=== PATIENT | female | born 1975 | race Caucasian/White ===

== ENCOUNTER 2018-01-07 11:22 | Emergency (ER) | payer BC ==
[~2018-01-07] VITALS: Ht 170.2 cm; Wt 129.5 kg
[2018-01-07 11:43] VITALS: BP 105/72; PULSE 123; RESP 22; TEMP 98.1; O2SAT 97
[2018-01-07] MEDS ORDERED: SODIUM CHLOR 0.9% 1000 ML INJ 1,000 ML IV SCH (14:57)
--- NOTE | 2018-01-07 14:59 | PD ---
HPI Chief Complaint: Abdominal Pain Time Seen by Provider: 14:47 Travel History International Travel<30 days: No Contact w/Intl Traveler<30days: No Traveled to known affect area: No History of Present Illness HPI Patient is a 42-year-old female presents emergency department for evaluation of abdominal pain and intermittent fevers at home. Patient had a recent ventral hernia repair at outside facility 5 days ago, despite this she stated that her surgeon cleared her to travel down to [place] from [place]. Patient states that she got here she has been having fairly extreme belly pain nausea without vomiting and intermittent fevers. She states she never took her temperature is felt hot. States symptoms are severe, all over her abdomen, constant, context and associated signs symptoms as above. States she has not had any dysuria never had a problem with kidney stones before peer [facility] Past Medical History Cardiovascular Problems: Yes Diabetes: Yes ?: Not Past Surgical History Narrative Surgical Hernia repair, Social History Tobacco Use: Yes Allergies-Medications (Allergen,Severity, Reaction): Coded Allergies: Iodinated Contrast- Oral and IV Dye (Verified Allergy, Severe, Swelling, ) THROAT SWELLING Sulfa (Sulfonamide Antibiotics) (Verified Allergy, Severe, Anaphylaxis, ) ceftriaxone (Verified Allergy, Severe, Swelling, 01/07/18) THROAT SWELLING celecoxib (Verified Allergy, Severe, Hallucinations, 01/07/18) shellfish derived (Verified Allergy, Severe, Swelling, 01/07/18) THROAT SWELLING bee venom protein (honey bee) (Verified Allergy, Unknown, 01/07/18) Reported Meds & Prescriptions Reported Meds & Active Scripts Active Cipro (Ciprofloxacin HCl) 500 Mg Tab 500 Mg PO BID 7 Days Reported Robaxin (Methocarbamol) 500 Mg Tab 1,000 Mg PO TID Novolog Inj (Insulin Aspart) 1,000 Unit/10 Ml Vial 0 SQ DIRECTED Sliding Scale as directed. Lantus Inj (Insulin Glargine) 100 Unit/Ml Inj 45 Tchzxzlwka-Lakoprszpuhpm-Npvljmxd 50-300-40 Mg Cap 1 Cap PO Q4H PRN Do not exceed 6 capsules/day. Pepcid (Famotidine) 40 Mg Tab 40 Mg PO HS Hydrochlorothiazide 12.5 Mg Cap 12.5 Mg PO DAILY Losartan (Losartan Potassium) 100 Mg Tab 100 Mg PO DAILY Metformin (Metformin HCl) 1,000 Mg Tab 1,000 Mg PO BIDPC Zofran (Ondansetron HCl) 4 Mg Tab 4 Mg PO Q6HR PRN Zofran (Ondansetron HCl) 4 Mg Tab 4 Mg PO Q12HR PRN Oxycodone (Oxycodone HCl) 5 Mg Cap 5 Mg PO Q4H PRN Review of Systems Except as stated in HPI: all other systems reviewed are Neg Physical Exam Narrative GENERAL: Well-developed well-nourished reproducible uncomfortable SKIN: Focused skin assessment warm/dry. HEAD: Atraumatic. Normocephalic. EYES: Pupils equal and round. No scleral icterus. No injection or drainage. ENT: No nasal bleeding or discharge. Mucous membranes pink and moist. NECK: Trachea midline. No JVD. CARDIOVASCULAR: Regular rate and rhythm. No murmur appreciated. RESPIRATORY: No accessory muscle use. Clear to auscultation. Breath sounds equal bilaterally. GASTROINTESTINAL: Abdomen soft, morbidly obese, healing surgical wounds consistent with laparoscopic hernia repair. They are clean dry and intact show no signs of infection. Her abdomen is mildly tender but there is no percussive signs no rebound signs no peritoneal signs of any kind. No CVA tenderness bilaterally. MUSCULOSKELETAL: No obvious deformities. No clubbing. No cyanosis. No edema. NEUROLOGICAL: Awake and alert. No obvious cranial nerve deficits. Motor grossly within normal limits. Normal speech. PSYCHIATRIC: Appropriate mood and affect; insight and judgment normal. Data Data Last Documented VS Vital Signs Date Time Temp Pulse Resp B/P (MAP) Pulse Ox O2 Delivery O2 Flow Rate FiO2 01/07/18 17:16 91 17 131/68 (89) 96 Room Air 01/07/18 11:43 98.1 Orders Orders Complete Blood Count With Diff (01/07/18 14:57) Comprehensive Metabolic Panel (01/07/18 14:57) Lipase (01/07/18 14:57) Lactic Acid (01/07/18 14:57) Prothrombin Time / Inr (Pt) (01/07/18 14:57) Act Partial Throm Time (Ptt) (01/07/18 14:57) Urinalysis - C+S If Indicated (01/07/18 14:57) Ct Abd/Pel W/O Iv Contrast (01/07/18 14:57) Iv Access Insert/Monitor (01/07/18 14:57) Ecg Monitoring (01/07/18 14:57) Oximetry (01/07/18 14:57) Ondansetron Inj (Zofran Inj) (01/07/18 15:00) Sodium Chlor 0.9% 1000 Ml Inj (Ns 1000 M (01/07/18 14:57) Sodium Chloride 0.9% Flush (Ns Flush) (01/07/18 15:00) Electrocardiogram (01/07/18 14:57) Ketorolac Inj (Toradol Inj) (01/07/18 15:00) Ed Urine Pregnancytest Poc (01/07/18 14:57) Urine Culture (01/07/18 15:50) Morphine Inj (Morphine Inj) (01/07/18 17:15) Ciprofloxacin 400 Mg Premix (Cipro 400 M (01/07/18 19:00) Ed Discharge Order (01/07/18 20:02) Labs Laboratory Tests Test 01/07/18 15:05 01/07/18 15:20 01/07/18 15:50 White Blood Count 12.8 TH/MM3 Red Blood Count 4.79 MIL/MM3 Hemoglobin 14.2 GM/DL Hematocrit 41.2 % Mean Corpuscular Volume 86.0 FL Mean Corpuscular Hemoglobin 29.7 PG Mean Corpuscular Hemoglobin Concent 34.5 % Red Cell Distribution Width 13.5 % Platelet Count 258 TH/MM3 Mean Platelet Volume 9.1 FL Neutrophils (%) (Auto) 79.9 % Lymphocytes (%) (Auto) 11.1 % Monocytes (%) (Auto) 7.8 % Eosinophils (%) (Auto) 0.6 % Basophils (%) (Auto) 0.6 % Neutrophils # (Auto) 10.2 TH/MM3 Lymphocytes # (Auto) 1.4 TH/MM3 Monocytes # (Auto) 1.0 TH/MM3 Eosinophils # (Auto) 0.1 TH/MM3 Basophils # (Auto) 0.1 TH/MM3 CBC Comment DIFF FINAL Differential Comment Prothrombin Time 11.2 SEC Prothromb Time International Ratio 1.1 RATIO Activated Partial Thromboplast Time 41.3 SEC Blood Urea Nitrogen 7 MG/DL Creatinine 0.70 MG/DL Random Glucose 263 MG/DL Total Protein 6.8 GM/DL Albumin 3.0 GM/DL Calcium Level 8.9 MG/DL Alkaline Phosphatase 123 U/L Aspartate Amino Transf (AST/SGOT) 28 U/L Alanine Aminotransferase (ALT/SGPT) 35 U/L Total Bilirubin 1.0 MG/DL Sodium Level 136 MEQ/L Potassium Level 3.6 MEQ/L Chloride Level 99 MEQ/L Carbon Dioxide Level 28.2 MEQ/L Anion Gap 9 MEQ/L Estimat Glomerular Filtration Rate 91 ML/MIN Lipase 64 U/L Lactic Acid Level 1.1 mmol/L Urine Color YELLOW Urine Turbidity HAZY Urine pH 6.5 Urine Specific [place] 1.015 Urine Protein 30 mg/dL Urine Glucose (UA) NEG mg/dL Urine Ketones 10 mg/dL Urine Occult Blood SMALL Urine Nitrite NEG Urine Bilirubin NEG Urine Urobilinogen 4.0 MG/DL Urine Leukocyte Esterase LARGE Urine RBC 14 /hpf Urine WBC /hpf Urine WBC Clumps OCC Urine Squamous Epithelial Cells 2 /hpf Urine Bacteria MANY /hpf Urine Mucus FEW /lpf Microscopic Urinalysis Comment CULTURE INDICATED MDM Medical Decision Making Medical Screen Exam Complete: Yes Emergency Medical Condition: Yes Differential Diagnosis Intra-abdominal infection, kidney stone, pyelonephritis, urinary tract infection. Narrative Course Patient was room to the emergency department, appears somewhat uncomfortable, she is tachycardic and tachypneic but after pain medicine these 2 vital signs resolved, she is not febrile. Her UA does show signs of urinary tract infection , think kidney stone is on the differential as well as intra-abdominal infection I recommend a CAT scan of the abdomen and she is agreeable. There is significant fat stranding around the left kidney with singular kidney stone in the renal pelvis but no obstructing stones. This could represent a pyelonephritis or certainly could represent a recently passed kidney stone. Either way she has defervesced quite well and appears comfortable at this time. She has pain medicine at home, she was given ciprofloxacin by IV and will be discharged on antibiotics. Discussed return to ED criteria follow-up with her surgeon and symptomatic management. She is stable for discharge Diagnosis Primary Impression: Pyelonephritis Referrals: Tam Wells MD Med/Other Pt SpecificInfo: Prescription(s) given Scripts Ciprofloxacin (Cipro) 500 Mg Tab 500 MG PO BID for Infection for 7 Days, #14 TAB 0 Refills Prov: Lisandro Gill MD 01/07/18 Disposition: DISCHARGE HOME Condition: Stable Lisandro Gill MD Jan 07, 2018 14:59
[2018-01-07] MEDS ORDERED: KETOROLAC TROMETHAMINE 30 MG/ML (IVP) VIAL IVP ONE (15:00)
[2018-01-07] MEDS ORDERED: ONDANSETRON HCL 4 MG/2 ML VIAL IVP ONE (15:00)
[2018-01-07] MEDS ORDERED: ZOFR4TAB PO ×2 (15:02)
[2018-01-07] MEDS ORDERED: HYDR12.57 PO (15:02)
[2018-01-07] MEDS ORDERED: BUTA1CAP5 PO (15:02)
[2018-01-07] MEDS ORDERED: METF1000 PO (15:02)
[2018-01-07] MEDS ORDERED: NOVOLOGP2 SQ (15:02)
[2018-01-07] MEDS ORDERED: OXYC1CAP PO (15:02)
[2018-01-07] MEDS ORDERED: LANTUS2P (15:02)
[2018-01-07] MEDS ORDERED: FAMO1TAB73 PO (15:02)
[2018-01-07] MEDS ORDERED: LOSA100T PO (15:02)
[2018-01-07] MEDS ORDERED: ROBA500T PO (15:02)
[2018-01-07 15:03] VITALS: O2SAT 95
[2018-01-07] MEDS: SODIUM CHLORIDE 0.9% FLUSH 10 ML FLUSH IV FLUSH PRN ×2 (15:14→17:09)
[2018-01-07 15:53] LABS: AUTOMATED NEUTROPHIL # 10.2 TH/MM3 (1.8-7.7); BASOPHIL # 0.1 TH/MM3 (0-0.2); BASOPHIL % 0.6 % (0.0-2.0); EOSINOPHIL # 0.1 TH/MM3 (0-0.4); EOSINOPHIL % 0.6 % (0.0-4.0); HEMATOCRIT 41.2 % (35.0-46.0); HEMOGLOBIN 14.2 GM/DL (11.6-15.3); LYMPH % 11.1 % (9.0-44.0); LYMPHOCYTE # 1.4 TH/MM3 (1.0-4.8); MEAN CORPUSCULAR HEMOGLOBIN 29.7 PG (27.0-34.0); MEAN CORPUSCULAR HGB CONC 34.5 % (32.0-36.0); MEAN PLATELET VOLUME 9.1 FL (7.0-11.0); MONO % 7.8 % (0.0-8.0); NEUT % 79.9 % (16.0-70.0); PLATELET COUNT 258 TH/MM3 (150-450); RED BLOOD COUNT 4.79 MIL/MM3 (4.00-5.30); RED CELL DISTRIBUTION WIDTH 13.5 % (11.6-17.2); WHITE BLOOD COUNT 12.8 TH/MM3 (4.0-11.0)
[2018-01-07 16:09] LABS: ALT (GPT) 35 U/L (10-53); AST (GOT) 28 U/L (15-37); BICARBONATE 28.2 MEQ/L (21.0-32.0); BLOOD UREA NITROGEN 7 MG/DL (7-18); CALCIUM 8.9 MG/DL (8.5-10.1); CHLORIDE 99 MEQ/L (98-107); GLOMERULAR FILTRATION RATE 91 ML/MIN (>89); GLUCOSE,RANDOM 263 MG/DL (74-106); SODIUM (NA) 136 MEQ/L (136-145)
[2018-01-07 16:11] LABS: ALKALINE PHOSPHATASE 123 U/L (45-117); TOTAL PROTEIN 6.8 GM/DL (6.4-8.2)
[2018-01-07 16:12] LABS: INTERNATIONAL NORMALIZED RATIO 1.1 RATIO; PROTHROMBIN TIME - PATIENT 11.2 SEC (9.8-11.6)
[2018-01-07 16:30] LABS: BACTERIA, URINE MANY /hpf; BILIRUBIN, URINE NEG (NEG); BLOOD, URINE SMALL (NEG); GLUCOSE,URINE NEG (NEG); KETONE, URINE 10 mg/dL (NEG); MUCUS URINE FEW /lpf (OCC); NITRITE,URINE NEG (NEG); PH, URINE 6.5 (5.0-8.5); SQUAMOUS EPITHELIAL CELL URINE 2 /hpf (0-5); URINE COLOR YELLOW (YELLW/STRAW); URINE LEUKOCYTE ESTERASE LARGE (NEG); WHITE BLOOD CELL CLUMPS OCC
[2018-01-07] MEDS ORDERED: MORPHINE SULFATE 8 MG/ML INJ IV PUSH ONE (17:15)
[2018-01-07 17:16] VITALS: BP 131/68; PULSE 91; RESP 17; O2SAT 96
[2018-01-07] MEDS ORDERED: CIPROFLOXACIN 400 MG PREMIX 200 ML IV ONE (19:00)
--- NOTE | 2018-01-07 19:23 | RADRPT ---
EXAM DATE/TIME: 01/07/2018 18:34 [facility] COMPARISON: No previous studies available for comparison. INDICATIONS : Left abdominal pain post hernia repair. ORAL CONTRAST: No oral contrast ingested. RADIATION DOSE: 23.48 CTDIvol (mGy) ; Patient body habitus MEDICAL HISTORY : Cardiovascular disease. Diabetes mellitus type 2. SURGICAL HISTORY : Hernia repair ENCOUNTER: Initial ACUITY: 3 days PAIN SCALE: 7/10 LOCATION: abdomen TECHNIQUE: Volumetric scanning of the abdomen and pelvis was performed. Using automated exposure control and ad justment of the mA and/or kV according to patient size, radiation dose was kept as low as reasonably achievable to obtain optimal diagnostic quality images. DICOM format image data is available electro nically for review and comparison. FINDINGS: Lung bases are clear. Small hiatal hernia. No acute findings in the liver, spleen, adrenals, right ki dney or pancreas. Within the left kidney there is a 13 mm x 6 mm calculus in left renal pelvis and se veral tiny punctate 1 mm calculi in the lower pole. No ureteral or bladder calculi are identified. No pelvic mass or free fluid. Scattered colonic diverticula. Appendix is normal. CONCLUSION: 1. Left-sided calculus in renal pelvis measuring up to 13 mm x 6 mm, nonobstructing with additional t iny nonobstructing calculus lower pole left kidney. No obstruction, free fluid or free air. Small hia nevin hernia. Dave Jennings MD on January 07, 2018 at 19:16 Board Certified Radiologist. This report was verified electronically.
[2018-01-07] MEDS ORDERED: CIPR-9 PO (19:54)
--- NOTE | 2018-01-08 19:20 | EKG ---
Date Performed: 01/07/2018 Time Performed: 15:20:56 PTAGE: 42 years EKG: Sinus rhythm LOW QRS VOLTAGE IN PRECORDIAL LEADS BORDERLINE ECG NO PREVIOUS TRACING DOCTOR: Ashlyn Jacinto Interpretating Date/Time 01/08/2018 19:17:45
== END 2018-01-07 20:44 | disposition home or self-care (01) ==
LOC: NEPD 11:22
DX: N12 Tubulo-interstitial nephritis, not specified as acute or chronic (principal); B96.20 Unspecified Escherichia coli [E. coli] as the cause of diseases classified elsewhere; R94.31 Abnormal electrocardiogram [ECG] [EKG]; E11.9 Type 2 diabetes mellitus without complications; Z98.890 Other specified postprocedural states; Z72.0 Tobacco use
CPT/HCPCS: 74176; 80053; 81001; 83605; 83690; 84703; 85025; 85610; 85730; 87077; 87086; 87186; 93005; 96361; 96374; 96375; 99285; J0744; J1885; J2270; J2405; J7030